=== PATIENT | male | born 1940 | race Caucasian/White ===

== ENCOUNTER 2016-08-22 12:40 | Observation (INO) ==
[2016-08-22 13:06] LABS: Basophils % 0.3 %; Hematocrit 41.7 % (37.5-50.1); Hemoglobin 12.7 g/dL (12.9-16.9); Immature Granulocytes % 4.2 % (0-4); Lymphocytes # 0.6 K/mcL (0.6-4.6); Mean Corpuscular HGB Conc 30.5 g/dL (31.6-35.5); Mean Corpuscular Hemoglobin 26.1 pg (28.0-33.3); Mean Corpuscular Volume 85.8 fL (83.0-100.0); Mean Platelet Volume 9.1 fL (9.4-12.4); Monocytes # 1.3 K/mcL (0.0-1.3); Monocytes % 16.4 %; Neutrophils # 5.6 K/mcL (1.6-8.9); Platelet Count 241 K/mcL (140-400); Red Blood Count 4.86 M/mcL (4.19-5.50); Red Cell Distribution Width 20.5 % (11.5-14.5); Segmented Neutrophils % 71.1 %
[2016-08-22 13:15] LABS: BUN/Creatinine Ratio 18 (6-26); Blood Urea Nitrogen 19 mg/dL (8-26); Calcium 9.9 mg/dL (8.6-10.8); Carbon Dioxide 26 mEq/L (19-29); Chloride 105 mEq/L (98-109); Glucose 109 mg/dL (70-99); Osmolality,Calculated 295 (280-300); Potassium 4.7 mEq/L (3.5-4.5); Sodium 141 mEq/L (136-145); eGFR For African Americans > 60 (> 60); eGFR For Non-African Americans > 60 (> 60)
--- NOTE | 2016-08-22 13:45 | Emergency Department Note ---
Disposition Clinical Impression: Pneumonia of both lower lobes Qualifiers: Pneumonia type: due to unspecified organism Qualified Code(s): J18.9 - Pneumonia, unspecified organism Disposition: Admitted As Inpatient Condition: Fair General Adult HPI - General Chief complaint: ED Shortness of Breath/Dyspnea Stated complaint: SOB Time Seen by Provider: 08/22/16 12:43 Source: patient, family Limitations: no limitations Nursing Notes Reviewed: Yes Vital Signs Reviewed: Yes - History of Present Illness HPI Narrative: 76 y/o male who presented 1 week ago due to cough and fatigue. Was diagnosed with pneumonia and d/c home with levaquin. He has had an improvement in his cough but worsening in his fatigue. Also reports decrease in his PO intake. PMH of CAD, COPD, Parkinsons. On Carbidopa, ASA, nitro, lasix, plavix, lisinipril, coreg, levothyroxine. Denies a current fever. Pain Scale: 0 Improves with: nothing Worsens with: other (exertion) Associated symptoms: Reports: denies other symptoms Treatments Prior to Arrival: none - Related Data Home Medications Medication Instructions Recorded Confirmed Acetaminophen [Tylenol] 500 mg PO Q6HR PRN 08/22/16 08/22/16 Albuterol Neb [AccuNeb] 1.25 mg IH Q4H PRN 08/22/16 08/22/16 Albuterol Sulfate [Albuterol 1 puff IH QID 08/22/16 08/22/16 Inhaler] Aspirin 81 mg PO DAILY 08/22/16 08/22/16 Atorvastatin [Lipitor] 40 mg PO HS 08/22/16 08/22/16 Budesonide/Formoterol 160/4.5 1 puff IH BIDR 08/22/16 08/22/16 [Symbicort 160/4.5] Carbidopa/Levodopa [Carbidopa-Levo 1 each PO TID 08/22/16 08/22/16 25-100 mg Odt] Carvedilol [Coreg] 6.25 mg PO BID 08/22/16 08/22/16 Clopidogrel [Plavix] 75 mg PO DAILY 08/22/16 08/22/16 Furosemide [Lasix] 40 mg PO DAILY 08/22/16 08/22/16 Levothyroxine Sodium 200 mcg PO DAILY 08/22/16 08/22/16 Lisinopril [Lisinopril] 2.5 mg PO DAILY 08/22/16 08/22/16 Potassium Chloride [Klor-Con 10] 10 meq PO BID 08/22/16 08/22/16 Primidone [Mysoline] 250 mg PO TID 08/22/16 08/22/16 Allergies Allergy/AdvReac Type Severity Reaction Status Date / Time No Known Allergies Allergy Verified 08/13/16 13:42 All systems ED: reviewed and negative except as stated. Constitutional: Denies: fever Eyes: Denies: vision change ENT ED: Denies: throat pain Cardiovascular: Denies: chest pain Respiratory: Reports: cough, dyspnea Gastrointestinal: Denies: abdominal pain Integumentary: Denies: rash Neurological: Denies: headache Endocrine: Denies: fatigue Past Medical History - Past Medical History Medical history: Reports: COPD, myocardial infarction Psychiatric history: Reports: no psych history - Social History Smoking Status: Former smoker Smokeless Tobacco Status: No Alcohol use: Reports: none, occasionally Drug use: Reports: none Physical Exam - General Limitations: no limitations General appearance: alert - Head Head exam: atraumatic - Eye Eye exam: Present: normal appearance, PERRL - ENT ENT exam: normal exam - Neck Neck exam: Present: normal inspection - Chest Chest inspection: Present: normal inspection - Respiratory Respiratory exam: Present: other (rales on the right). Absent: respiratory distress, wheezes - Cardiovascular Cardiovascular exam: Present: regular rate, normal rhythm - Abdominal Exam Abdominal exam: Present: soft, Non-Tender - Extremities Exam Extremities exam: Present: normal inspection - Back Exam Back exam: Present: normal inspection - Neurological Exam Neurological exam: Present: alert, oriented X3 - Psychiatric Psychiatric exam: Present: normal affect, normal mood Course Course Narrative: 76 y/o male w/ dx of pneumonia who is getting worse fatigue. RR is 22 but SPO2 is adequate. O2 is 90% on RA in the room. CXR demonstrates pneumonia on the right. - Reevaluation(s) Reevaluation #1: pneumonia has progressed since 1 week ago, it is now bilateral with worsening effusions. Will admit for failure of outpatient therapy and pneumonia. SPO2 was 90% on RA. Failed outpatient levaquin. Will start vanc/zosyn. Accepted by [facility] Vital Signs Temperature 97.8 F 08/22/16 12:57 Pulse Rate 92 08/22/16 12:57 Respiratory Rate 22 08/22/16 12:57 Blood Pressure 114/67 08/22/16 12:57 O2 Sat by Pulse Oximetry 96 08/22/16 12:57 Temperature 97.8 F 08/22/16 20:01 Pulse Rate 90 08/22/16 20:01 Respiratory Rate 18 08/22/16 20:01 Blood Pressure 126/74 08/22/16 20:01 O2 Sat by Pulse Oximetry 94 L 08/22/16 20:01 Oxygen Delivery Oxygen Delivery Nasal Cannula Medical Decision Making - Medical Records Medical records reviewed: Yes I reviewed the patient's medical records. - Lab Data Lab results reviewed: Yes I reviewed the patient's lab results. Result diagrams: 08/22/16 12:54 08/22/16 12:54 Lab Results 08/22/16 08/22/16 08/22/16 Range/Units 12:54 12:54 12:54 WBC 7.9 (4.3-11.1) K/mcL RBC 4.86 (4.19-5.50) M/mcL Hgb 12.7 L (12.9-16.9) g/dL Hct 41.7 (37.5-50.1) % MCV 85.8 (83.0-100.0) fL MCH 26.1 L (28.0-33.3) pg MCHC 30.5 L (31.6-35.5) g/dL RDW 20.5 H (11.5-14.5) % Plt Count 241 (140-400) K/mcL MPV 9.1 L (9.4-12.4) fL Immature Gran % 4.2 H (0-4) % Seg Neutrophils % 71.1 % Lymphocytes % 8.0 % Monocytes % 16.4 % Eosinophils % 0.0 % Basophils % 0.3 % Neutrophils # 5.6 (1.6-8.9) K/mcL Lymphocytes # 0.6 (0.6-4.6) K/mcL Monocytes # 1.3 (0.0-1.3) K/mcL Eosinophils # 0.0 (0.0-0.6) K/mcL Basophils # 0.0 (0.0-0.2) K/mcL Sodium 141 (136-145) mEq/L Potassium 4.7 H (3.5-4.5) mEq/L Chloride 105 (98-109) mEq/L Carbon Dioxide 26 (19-29) mEq/L BUN 19 (8-26) mg/dL Creatinine 1.07 (0.72-1.25) mg/dL Est GFR ( Amer) > 60 (> 60) Est GFR (Non-Af Amer) > 60 (> 60) BUN/Creatinine Ratio 18 (6-26) Glucose 109 H (70-99) mg/dL Calculated Osmolality 295 (280-300) Lactic Acid (0.5-2.2) mmol/L Calcium 9.9 (8.6-10.8) mg/dL Troponin I 0.01 (0-0.03) ng/mL B-Natriuretic Peptide (0-100) pg/mL TSH 0.511 (0.350-4.840) mcIU/mL 08/22/16 08/22/16 Range/Units 12:54 13:13 WBC (4.3-11.1) K/mcL RBC (4.19-5.50) M/mcL Hgb (12.9-16.9) g/dL Hct (37.5-50.1) % MCV (83.0-100.0) fL MCH (28.0-33.3) pg MCHC (31.6-35.5) g/dL RDW (11.5-14.5) % Plt Count (140-400) K/mcL MPV (9.4-12.4) fL Immature Gran % (0-4) % Seg Neutrophils % % Lymphocytes % % Monocytes % % Eosinophils % % Basophils % % Neutrophils # (1.6-8.9) K/mcL Lymphocytes # (0.6-4.6) K/mcL Monocytes # (0.0-1.3) K/mcL Eosinophils # (0.0-0.6) K/mcL Basophils # (0.0-0.2) K/mcL Sodium (136-145) mEq/L Potassium (3.5-4.5) mEq/L Chloride (98-109) mEq/L Carbon Dioxide (19-29) mEq/L BUN (8-26) mg/dL Creatinine (0.72-1.25) mg/dL Est GFR ( Amer) (> 60) Est GFR (Non-Af Amer) (> 60) BUN/Creatinine Ratio (6-26) Glucose (70-99) mg/dL Calculated Osmolality (280-300) Lactic Acid 2.0 (0.5-2.2) mmol/L Calcium (8.6-10.8) mg/dL Troponin I (0-0.03) ng/mL B-Natriuretic Peptide 130 H (0-100) pg/mL TSH (0.350-4.840) mcIU/mL - Radiology Data Radiology results reviewed: Yes I reviewed the patient's radiology results. - EKG Data EKG #1 EKG attestation: Yes I reviewed and interpreted this EKG. EKG shows normal: sinus rhythm Rate: normal Rhythm: NSR Interpretation: nonspecific ST-T wave changes Attestation Statement - Attestation Attestation: For this encounter, I have reviewed the resident, WEB FEEDER, or PA documentation, treatment plan, and medical decision making; and I have had face to face time with this patient. 76-year-old male presents with increased shortness of breath, nausea and generalized malaise and weakness. Patient states he was diagnosed with pneumonia within the past week. He refused to stay in the hospital and was discharged with a prescription for levofloxacin. Patient states he finished his medication yesterday but has started to worsen in condition. On repeat chest x-ray patient has a infiltrate consistent with pneumonia. Patient started on antibiotics in the emergency department and will be admitted for further care and evaluation. Vital signs otherwise stable.
[2016-08-22] MEDS ORDERED: Vancomycin 1,000 MG in D5% in Water 250 ML IVPB ONE (14:08)
[2016-08-22] MEDS ORDERED: Piperacillin/Tazobactam 3.375 GM in D5% in Water (Mini-Bag+) 100 ML IVPB ONE (14:08)
--- NOTE | 2016-08-22 15:45 | Electrocardiograph Report ---
[address] [place], [place] [address] Test Date: 2016-08-22 Pat Name: Nuria Marti Department: 105 Room: 2A26 Gender: M Fireman: : 1940 Requested By: Raudel Parada Order Number: [id number] Reading MD: Jaun Villasenor MD Measurements Intervals [place] Rate: 94 P: 55 AR: 148 QRS: 46 QRSD: 94 T: 124 QT: 340 QTc: 392 Interpretive Statements SINUS RHYTHM LEFT ATRIAL ENLARGEMENT LATERAL ISCHEMIA Electronically Signed On 08-22-2016 15:43:48 EST by Jaun Villasenor MD
[2016-08-22] MEDS ORDERED: Naloxone 0.4 MG/ML INJ IVP PRN (16:02)
[2016-08-22 16:15] LABS: Thyroid Stimulating Hormone 0.511 mcIU/mL (0.350-4.840)
[2016-08-22] MEDS ORDERED: Albuterol 2.5 MG/3 ML NEBULIZER IH PRN (16:16)
--- NOTE | 2016-08-22 16:28 | Internal Med History&Physical ---
<Priscilla Falcon - Last Filed: 08/22/16 22:45> Date of Encounter: 08/22/16 Time of Encounter: 16:19 Assessment and Plan (1) Pneumonia of both lower lobes Current visit: Yes Status: Acute Patient presenting with increased shortness of breath and weakness. He presented 1 week ago with productive cough and was diagnosed with pneumonia and sent home on PO Levaquin. CXR reveals bilateral lower lobe pneumonia with para pneumonic effusions. He has failed outpatient treatment. He is hypoxic with O2 saturations of 90% on room air. On exam, patient with right posterior rales. WBC normal at 7.9, patient is afebrile. Lactic acid elevated at 2.0. Recheck lactic acid. Broad spectrum antibiotics with vancomycin and Zosyn. Continuous IV fluids with 0.9NS at 75mL/hr titrate oxygen to maintain O2 sat > 92% Duoneb treatments QID Albuterol nebulizer Q2hr PRN Qualifiers: Pneumonia type: due to unspecified organism Qualified Code(s): J18.9 - Pneumonia, unspecified organism (2) Diarrhea Current visit: Yes Status: Acute Patient reports having watery diarrhea 2-3 times daily for the last 3 days. Check stool for C.Diff IV fluids 0.9NS at 75mL/hr Culturelle PO daily Qualifiers: Diarrhea type: unspecified type Qualified Code(s): R19.7 - Diarrhea, unspecified (3) Hyperkalemia Current visit: Yes Status: Acute Potassium of 4.7. Patient takes potassium supplement daily. Hold potassium supplement. Recheck chemistry tomorrow. (4) COPD (chronic obstructive pulmonary disease) Current visit: Yes Status: Acute Patient with diagnosis of COPD, here with pneumonia which failed outpatient treatment. He is satting 90% on room air. Continue home dose of Budesonide/Formotorol titrate Oxygen to maintain O2 saturation > 92% Duoneb treatments QID Albuterol nebulizer Q2hr PRN Qualifiers: COPD type: unspecified COPD Qualified Code(s): J44.9 - Chronic obstructive pulmonary disease, unspecified (5) Diastolic congestive heart failure Current visit: No Status: Chronic Patient with systolic congestive heart failure. Echo 12/04/15 showed LVEF of 50 % and mild Left ventricular diastolic dysfunction. He follows with Dr. Jaramillo in cardiology as an outpatient. Patient actually appears a little dry on exam. Continue home doses of carvedilol, lasix, lisinopril Qualifiers: Congestive heart failure chronicity: chronic Qualified Code(s): I50.32 - Chronic diastolic (congestive) heart failure (6) DVT prophylaxis Current visit: Yes Status: Acute Internal Medicine - H&P: HPI Chief complaint: shortness of breath, fatigue Admitted From: Emergency Dept Plans for Post Hospital Care: Home History of present illness: Mr. Marti is a 76 year old male with hypertension, coronary artery disease, ischemic cardiomyopathy, systolic congestive heart failure, parkinson's and COPD presented to the emergency department today with increased shortness of breath, and weakness. He presented a week ago with productive cough and was found to have pneumonia and sent home on oral Levaquin. He reports his cough has improved is no longer productive however he has had increasing shortness of breath, weakness, poor appetite. He also reports lightheadedness from time to time him on standing. He reports some watery diarrhea 2-3 times a day for the last 3 days. He denies any nausea, vomiting, abdominal pain. He denies any fever, chills, or sweats. He denies any chest pain, palpitations evaluation in the emergency department included a chest x-ray which showed bilateral lower lobe pneumonia with parapneumonic effusions. White blood cell count was normal at 7.9. Patient was found to be hypoxic satting 90% on room air. He was mildly hyperkalemic with potassium of 4.7. Troponin was normal at 0.01. BNP was mildly elevated at 1:30. Lactic acid was elevated at 2.0. On exam, patient is alert and oriented, in no acute distress. His heart has regular rate and rhythm. He had rales in right base on auscultation. Past Med Surg Social Fam HX - Past Medical History Medical history: CHF, COPD, coronary artery disease, hypertension, myocardial infarction, thyroid disease, other (parkinsons) Psychiatric history: no psych history - Past Surgical History Surgical History: coronary bypass (CABG) - Social History Smoking Status: Former smoker (60 Pack year history) Smokeless Tobacco Status: No Alcohol use: none Drug use: none - Family History Mother Living Status: Age at : 83 Hx Family Endocrine Disorder: Yes (diabetes) Father Living Status: Age at : 51 Cause of : MT Hx Family Cardiac Disorders: Yes Internal Medicine - H&P: Meds Acetaminophen [Tylenol] 500 mg PO Q6HR PRN 08/22/16 [History] Albuterol Neb [AccuNeb] 1.25 mg IH Q4H PRN 08/22/16 [History] Albuterol Sulfate [Albuterol Inhaler] 1 puff IH QID 08/22/16 [History] Aspirin 81 mg PO DAILY 08/22/16 [History] Atorvastatin [Lipitor] 40 mg PO HS 08/22/16 [History] Budesonide/Formoterol 160/4.5 [Symbicort 160/4.5] 1 puff IH BIDR 08/22/16 [ History] Carbidopa/Levodopa [Carbidopa-Levo 25-100 mg Odt] 1 each PO TID 08/22/16 [ History] Carvedilol [Coreg] 6.25 mg PO BID 08/22/16 [History] Clopidogrel [Plavix] 75 mg PO DAILY 08/22/16 [History] Furosemide [Lasix] 40 mg PO DAILY 08/22/16 [History] Levothyroxine Sodium 200 mcg PO DAILY 08/22/16 [History] Lisinopril [Lisinopril] 2.5 mg PO DAILY 08/22/16 [History] Potassium Chloride [Klor-Con 10] 10 meq PO BID 08/22/16 [History] Primidone [Mysoline] 250 mg PO TID 08/22/16 [History] Allergies No Known Allergies Allergy (Verified 08/13/16 13:42) All Systems PM: A 10-system review of systems was performed and is negative for pertinent findings except as documented above in the HPI. - Constitutional Constitutional: fatigue, weakness, no chills, no fever(s), no night sweats - EENT Eyes: no change in vision, no discharge, no pain, no photophobia Ears: no ear discharge, no ear pain, no tinnitus Nose, mouth and throat: no dysphagia, no nasal discharge, no neck pain, no sore throat - Cardiovascular Cardiovascular ROS IM: dyspnea, dyspnea on exertion, lightheadedness, no chest pain, no diaphoresis, no palpitations, no syncope - Respiratory Respiratory: cough, dyspnea, dyspnea on exertion, no wheezing, no excessive phlegm production - Gastrointestinal Gastrointestinal: diarrhea, no abdominal pain, no hematemesis, no hematochezia, no melena, no nausea, no vomiting - Musculoskeletal Musculoskeletal ROS IM: no numbness, no tingling - Integumentary Integumentary IM: no rash, no unusual bruising - Neurological Neurological ROS: no confusion, no convulsions, no focal weakness, no numbness, no tingling, no tremor(s) - Hematologic/Lymphatic Hematologic/Lymphatic: no easy bruising - Constitutional Vitals: Temp Pulse Resp BP Pulse Ox 97.7 F 93 22 94/61 96 08/22/16 15:51 08/22/16 15:51 08/22/16 15:51 08/22/16 15:51 08/22/16 15:51 General appearance: Present: A&O X 3, pleasant, no acute distress - Head Head exam: Present: atraumatic, normocephalic - Eye Eye exam: Present: PERRL, conjuntiva pink, sclera anicteric Pupils: Present: PERRL - Neck Neck exam general surgery: Present: supple, trachea midline. Absent: lymphadenopathy - Respiratory Respiratory exam: Present: rales (fine rales in right base). Absent: accessory muscle use, rhonchi, wheezes - Cardiovascular Cardiovascular exam: Present: RRR, +S1, +S2. Absent: diastolic murmur, gallop, rubs, systolic murmur - GI/Abdominal GI/Abdominal exam: Present: normal bowel sounds, soft, no peritoneal signs. Absent: distended, tenderness - Extremities Exam Extremities exam: Present: warm, radial pulses palpable and symetrical. Absent : calf tenderness, cyanotic, pedal edema - Neurological Exam Neurological exam: Present: CN II-XII intact, oriented X3, no focal deficits. Absent: facial droop, speech deficit - Skin Skin exam: Present: dry, intact Internal Med - H&P Results - Labs CBC & Chem 7: 08/22/16 12:54 08/22/16 12:54 Labs: All Lab Results (24 Hours) 08/22/16 08/22/16 08/22/16 Range/Units 12:54 12:54 12:54 WBC 7.9 (4.3-11.1) K/mcL RBC 4.86 (4.19-5.50) M/mcL Hgb 12.7 L (12.9-16.9) g/dL Hct 41.7 (37.5-50.1) % MCV 85.8 (83.0-100.0) fL MCH 26.1 L (28.0-33.3) pg MCHC 30.5 L (31.6-35.5) g/dL RDW 20.5 H (11.5-14.5) % Plt Count 241 (140-400) K/mcL MPV 9.1 L (9.4-12.4) fL Immature Gran % 4.2 H (0-4) % Seg Neutrophils % 71.1 % Lymphocytes % 8.0 % Monocytes % 16.4 % Eosinophils % 0.0 % Basophils % 0.3 % Neutrophils # 5.6 (1.6-8.9) K/mcL Lymphocytes # 0.6 (0.6-4.6) K/mcL Monocytes # 1.3 (0.0-1.3) K/mcL Eosinophils # 0.0 (0.0-0.6) K/mcL Basophils # 0.0 (0.0-0.2) K/mcL Sodium 141 (136-145) mEq/L Potassium 4.7 H (3.5-4.5) mEq/L Chloride 105 (98-109) mEq/L Carbon Dioxide 26 (19-29) mEq/L BUN 19 (8-26) mg/dL Creatinine 1.07 (0.72-1.25) mg/dL Est GFR ( Amer) > 60 (> 60) Est GFR (Non-Af Amer) > 60 (> 60) BUN/Creatinine Ratio 18 (6-26) Glucose 109 H (70-99) mg/dL Calculated Osmolality 295 (280-300) Lactic Acid (0.5-2.2) mmol/L Calcium 9.9 (8.6-10.8) mg/dL Troponin I 0.01 (0-0.03) ng/mL B-Natriuretic Peptide (0-100) pg/mL TSH 0.511 (0.350-4.840) mcIU/mL 08/22/16 08/22/16 Range/Units 12:54 13:13 WBC (4.3-11.1) K/mcL RBC (4.19-5.50) M/mcL Hgb (12.9-16.9) g/dL Hct (37.5-50.1) % MCV (83.0-100.0) fL MCH (28.0-33.3) pg MCHC (31.6-35.5) g/dL RDW (11.5-14.5) % Plt Count (140-400) K/mcL MPV (9.4-12.4) fL Immature Gran % (0-4) % Seg Neutrophils % % Lymphocytes % % Monocytes % % Eosinophils % % Basophils % % Neutrophils # (1.6-8.9) K/mcL Lymphocytes # (0.6-4.6) K/mcL Monocytes # (0.0-1.3) K/mcL Eosinophils # (0.0-0.6) K/mcL Basophils # (0.0-0.2) K/mcL Sodium (136-145) mEq/L Potassium (3.5-4.5) mEq/L Chloride (98-109) mEq/L Carbon Dioxide (19-29) mEq/L BUN (8-26) mg/dL Creatinine (0.72-1.25) mg/dL Est GFR ( Amer) (> 60) Est GFR (Non-Af Amer) (> 60) BUN/Creatinine Ratio (6-26) Glucose (70-99) mg/dL Calculated Osmolality (280-300) Lactic Acid 2.0 (0.5-2.2) mmol/L Calcium (8.6-10.8) mg/dL Troponin I (0-0.03) ng/mL B-Natriuretic Peptide 130 H (0-100) pg/mL TSH (0.350-4.840) mcIU/mL <Francisco Gillis - Last Filed: 08/23/16 15:27> Date of Encounter: 08/23/16 Internal Medicine - H&P: HPI History of present illness: Mr. Marti is a 76 year old male All Systems PM: A 10-system review of systems was performed and is negative for pertinent findings except as documented above in the HPI. - Constitutional Vitals: Temp Pulse Resp BP Pulse Ox 97.7 F 76 16 104/60 93 L 08/23/16 12:10 08/23/16 12:10 08/23/16 12:10 08/23/16 12:10 08/23/16 12:10 Internal Med - H&P Results - Labs CBC & Chem 7: 08/23/16 10:57 08/23/16 06:23 Labs: Short CBC 08/23/16 08/23/16 Range/Units 06:23 10:57 WBC 6.9 (4.3-11.1) K/mcL Hgb 9.7 L D 9.7 L (12.9-16.9) g/dL Hct 31.5 L 31.6 L (37.5-50.1) % Plt Count 182 (140-400) K/mcL Neutrophils # 4.8 (1.6-8.9) K/mcL BMP 08/23/16 06:23 Sodium 143 Potassium 4.1 Chloride 108 Carbon Dioxide 26 BUN 18 Creatinine 0.84 Glucose 71 Calcium 8.5 L - Attending Attestation I examined this patient and my medical decision-making was reviewed with the Advanced Practice Provider. I agree with the documented findings, disposition and treatment plan as described except to the extent set forth below. Patient presented to the hospital with generalized weakness and shortness of breath. He received 5 days treatment for pneumonia outpatient. He feels worse. His chest x-ray reveals bilateral pneumonia. Lung exam reveals rales at the right base, no wheezing. Plan: Will admit patient to medical service provided treatment with antibiotics and inhaled bronchodilators and oxygen by nasal cannula.
[2016-08-22] MEDS: Ipratropium/Albuterol Neb 3 ML IH SCH ×2 (16:41→23:02)
[2016-08-22] MEDS: 0.9 % Sodium Chloride 1,000 ML IVC SCH (16:59)
[2016-08-22] MEDS: Lactobacillus 1 EACH CAP.SPRINK PO SCH (16:59)
[2016-08-22] MEDS ORDERED: Vancomycin 1,000 MG in D5% in Water 250 ML IVPB SCH (17:00)
[2016-08-22] MEDS: Carbidopa/Levodopa 25/100 TABLET PO SCH (20:55)
[2016-08-22] MEDS: Budesonide/Formoterol 160/4.5 MDI IH SCH (22:30)
[2016-08-23] MEDS: Ipratropium/Albuterol Neb 3 ML IH SCH ×4 (04:07→22:08)
[2016-08-23 07:05] LABS: BUN/Creatinine Ratio 21 (6-26); Blood Urea Nitrogen 18 mg/dL (8-26); Calcium 8.5 mg/dL (8.6-10.8); Carbon Dioxide 26 mEq/L (19-29); Chloride 108 mEq/L (98-109); Glucose 71 mg/dL (70-99); Osmolality,Calculated 296 (280-300); Potassium 4.1 mEq/L (3.5-4.5); Sodium 143 mEq/L (136-145); eGFR For African Americans > 60 (> 60); eGFR For Non-African Americans > 60 (> 60)
[2016-08-23 07:12] LABS: Hematocrit 31.5 % (37.5-50.1); Mean Corpuscular HGB Conc 30.8 g/dL (31.6-35.5); Mean Corpuscular Hemoglobin 26.9 pg (28.0-33.3); Mean Corpuscular Volume 87.5 fL (83.0-100.0); Mean Platelet Volume 10.8 fL (9.4-12.4); Platelet Count 182 K/mcL (140-400); Red Cell Distribution Width 19.9 % (11.5-14.5)
[2016-08-23 07:32] LABS: Hemoglobin 9.7 g/dL (12.9-16.9)
[2016-08-23 08:07] LABS: Lymphocytes # 0.9 K/mcL (0.6-4.6); Monocytes # 0.9 K/mcL (0.0-1.3); Neutrophils # 4.8 K/mcL (1.6-8.9)
[2016-08-23 08:08] LABS: Anisocytosis 1+ (Not Present); Platelet Estimate Normal (Normal)
[2016-08-23 08:09] LABS: Basophilic Stippling 1+ (Not Present); Polychromasia 1+ (Not Present)
[2016-08-23 08:10] LABS: Nucleated Red Blood Cells 2 /100 WBC (0)
[2016-08-23] MEDS ORDERED: Aspirin 81 MG TAB.CHEW PO SCH (09:00)
[2016-08-23] MEDS: Furosemide 40 MG TABLET PO SCH (09:34)
[2016-08-23] MEDS: Lactobacillus 1 EACH CAP.SPRINK PO SCH (09:34)
[2016-08-23] MEDS: Carbidopa/Levodopa 25/100 TABLET PO SCH ×3 (09:34→21:11)
[2016-08-23] MEDS: *HR* Heparin 5,000 UNIT/ML VIAL SQ SCH ×3 (09:36→16:48)
--- NOTE | 2016-08-23 10:03 | Internal Med Progress Note ---
<Gonzalez Coles - Last Filed: 08/23/16 11:28> Date of Encounter: 08/23/16 Time of Encounter: 10:01 - Assessment and plan (1) Acute respiratory failure with hypoxia Current Visit: Yes Status: Acute Assessment and plan: 76 y/o patient hx of hTN, CAD, systolic congestive heart failure, COPD presents with worsening sob and weakness. 1 week ago patient was diagnosed with pneumonia and sent home on PO levaquin. Patient requires oxygen to keep O2 saturations above 90%. 2nd to pneumonia. CXR shows b/l lower lobe pneumonia and para pneumonic effusions. Lung exam shows diffuse decrease breath sounds, poor air movement. Patient has required increase in O2 supplementaiton from yesterday. Currently on 3.5L O2. Continue O2 supplementation, IV antibiotics, duoneb, albuterol nebulizers. (2) Pneumonia of both lower lobes Current Visit: Yes Status: Acute Assessment and plan: Patients CXR shows b/l lower lobe infiltrates and para pneumonic effusions. He was treated outpatient with levaquin but his sob continued to worsen. WBC 6.9. Community acquired. We will discontinue vanc, zosyn, and start on rocephin and azithromax, O2 supplementation. Awaiting culture results and sensitivity before de-escalating antibiotics Qualifiers: Pneumonia type: due to unspecified organism Qualified Code(s): J18.9 - Pneumonia, unspecified organism (3) COPD (chronic obstructive pulmonary disease) Current Visit: Yes Status: Acute Assessment and plan: 2nd to tobacco use. Former smoker. Reports improved SOB. Poor air movement on lung exam. Just started on home O2. continue symbicort, O2, duoneb, albuterol nebulizer PRN. Qualifiers: COPD type: unspecified COPD Qualified Code(s): J44.9 - Chronic obstructive pulmonary disease, unspecified (4) Diarrhea Current Visit: Yes Status: Acute Assessment and plan: Patient reported 2-3x loose stools before admission. Has not had any since admission. Was on levaquin for outpatient therapy for Pneumonia. C. diff ordered and pending. wbc 6.9. d/c fluids as patient has pulmonary crackles. continue culturelle Qualifiers: Diarrhea type: unspecified type Qualified Code(s): R19.7 - Diarrhea, unspecified (5) DVT prophylaxis Current Visit: Yes Status: Acute Assessment and plan: Heparin SQ. (6) Hyperkalemia Current Visit: Yes Status: Acute Assessment and plan: resolved. patient takes potassium supplements at home. may have been 2nd to this. potassium has been held. May also have been 2nd to dehydration as patient reported diarrhea. will continue to monitor with BMP tomorrow morning. (7) Diastolic congestive heart failure Current Visit: No Status: Chronic Assessment and plan: LVEF 50% with mild LV diastolic disfunction. Patient is on Lasix therapy outpatient. On physical exam has crackles. D/c fluids. Qualifiers: Congestive heart failure chronicity: chronic Qualified Code(s): I50.32 - Chronic diastolic (congestive) heart failure (8) Hypertension Current Visit: Yes Status: Chronic Assessment and plan: hx of HTN. BP is controlled. Continue lisinopril, lasix. Qualifiers: Hypertension type: essential hypertension Qualified Code(s): I10 - Essential (primary) hypertension (9) Coronary artery disease Current Visit: Yes Status: Chronic Assessment and plan: hx of MD in past. Denies CP currently. Troponin x1 normal. BNP 130 which is baseline for him. TSH WNL. Continue plavix, aspirin, coreg, lipitor Qualifiers: Coronary Disease-Associated Artery/Lesion type: [place] artery [place] vs. transplanted heart: [place] heart Associated angina: without angina Qualified Code(s): I25.10 - Atherosclerotic heart disease of [place] coronary artery without angina pectoris - Subjective Interval history: 76 M admitted for community acquired pneumonia. Patient says his sob has improved. He denies chest pain, palpitations, abdominal pain, pain with inspiration and cough. - Constitutional Vitals: Temp Pulse Resp BP Pulse Ox 97.8 F 90 18 100/63 90 L 08/23/16 07:37 08/23/16 07:37 08/23/16 07:37 08/23/16 07:37 08/23/16 07:37 General appearance: Present: A&O X 3, pleasant, no acute distress - Respiratory Respiratory exam: Present: decreased breath sounds. Absent: rales, rhonchi, wheezes - Cardiovascular Cardiovascular exam: Present: RRR, +S1, +S2. Absent: diastolic murmur, gallop, rubs, systolic murmur - GI/Abdominal GI/Abdominal exam: Present: normal bowel sounds, soft, no peritoneal signs. Absent: distended, tenderness - Extremities Exam Extremities exam: Present: warm, radial pulses palpable and symetrical. Absent : calf tenderness, cyanotic, pedal edema Internal Medicine: Result - Labs CBC & Chem 7: 08/23/16 10:57 08/23/16 06:23 Labs: Short CBC 08/23/16 Range/Units 06:23 WBC 6.9 (4.3-11.1) K/mcL Hgb 9.7 L D (12.9-16.9) g/dL Hct 31.5 L (37.5-50.1) % Plt Count 182 (140-400) K/mcL Neutrophils # 4.8 (1.6-8.9) K/mcL BMP 08/23/16 06:23 Sodium 143 Potassium 4.1 Chloride 108 Carbon Dioxide 26 BUN 18 Creatinine 0.84 Glucose 71 Calcium 8.5 L Consult Discharge Plan - Plan Referrals: Faith Dickens, [employer]OR [employer]ISING COLLECTOR [Primary Care Provider] - 08/30/16 10:45 am (Please follow up as schedule...) <Jude Ortega - Last Filed: 08/23/16 11:31> Date of Encounter: 08/23/16 - Constitutional Vitals: Temp Pulse Resp BP Pulse Ox 97.8 F 90 18 100/63 91 L 08/23/16 07:37 08/23/16 07:37 08/23/16 10:48 08/23/16 07:37 08/23/16 10:48 Internal Medicine: Result - Labs CBC & Chem 7: 08/23/16 10:57 08/23/16 06:23 Labs: Short CBC 08/23/16 08/23/16 Range/Units 06:23 10:57 WBC 6.9 (4.3-11.1) K/mcL Hgb 9.7 L D 9.7 L (12.9-16.9) g/dL Hct 31.5 L 31.6 L (37.5-50.1) % Plt Count 182 (140-400) K/mcL Neutrophils # 4.8 (1.6-8.9) K/mcL BMP 08/23/16 06:23 Sodium 143 Potassium 4.1 Chloride 108 Carbon Dioxide 26 BUN 18 Creatinine 0.84 Glucose 71 Calcium 8.5 L - Attending Attestation Acute on chronic respiratory failure secondary to community-acquired pneumonia failed outpatient therapy with Levaquin Continue ceftriaxone and azithromycin day 1 Hold IV fluids, continue IV Lasix Chest x-ray shows bilateral pleural effusions/unlikely parapneumonic effusions from pneumonia Consider a CT scan of the chest if worse only Consider repeating echocardiogram if worse as well I examined this patient and my medical decision-making was reviewed with the TAMALE MAKER/PA/Advanced Practice Nurse/Resident Physician. I agree with the documented findings, disposition and treatment plan as described except to the extent set forth below.
[2016-08-23] MEDS: 0.9 % Sodium Chloride 1,000 ML IVC SCH (10:08)
[2016-08-23] MEDS: Budesonide/Formoterol 160/4.5 MDI IH SCH (10:47)
[2016-08-23 11:09] LABS: Hematocrit 31.6 % (37.5-50.1); Hemoglobin 9.7 g/dL (12.9-16.9)
[2016-08-23] MEDS: predniSONE 20 MG TABLET PO SCH (12:22)
[2016-08-23] MEDS: Azithromycin 250 MG TABLET PO SCH (12:23)
[2016-08-23] MEDS ORDERED: Vancomycin 1,000 MG in D5% in Water 250 ML IVPB SCH (16:00)
[2016-08-23] MEDS ORDERED: Vancomycin 750 MG in D5% in Water 250 ML IVPB SCH (16:00)
[2016-08-23] MEDS ORDERED: Piperacillin/Tazobactam 3.375 GM in D5% in Water (Mini-Bag+) 100 ML IVPB SCH (22:00)
[2016-08-24] MEDS: *HR* Heparin 5,000 UNIT/ML VIAL SQ SCH ×2 (00:19→06:20)
[2016-08-24] MEDS: Ipratropium/Albuterol Neb 3 ML IH SCH ×2 (04:32→10:46)
[2016-08-24] MEDS: Carbidopa/Levodopa 25/100 TABLET PO SCH (07:52)
[2016-08-24] MEDS: predniSONE 20 MG TABLET PO SCH (07:52)
[2016-08-24] MEDS: Azithromycin 250 MG TABLET PO SCH (07:52)
[2016-08-24] MEDS: Lactobacillus 1 EACH CAP.SPRINK PO SCH (07:52)
[2016-08-24] MEDS: Furosemide 40 MG TABLET PO SCH (07:52)
[2016-08-24] MEDS ORDERED: Aspirin Enteric Coated 81 MG Tablet PO SCH (09:00)
--- NOTE | 2016-08-24 10:00 | Discharge Summary ---
<Gonzalez Coles - Last Filed: 08/24/16 10:24> Date of Encounter: 08/24/16 Time of Encounter: 09:57 - Discharge Diagnosis (1) Acute respiratory failure with hypoxia Priority: Primary Status: Acute (2) Pneumonia of both lower lobes Priority: Secondary Status: Acute Qualifiers: Pneumonia type: due to unspecified organism Qualified Code(s): J18.9 - Pneumonia, unspecified organism (3) COPD (chronic obstructive pulmonary disease) Priority: Secondary Status: Acute Qualifiers: COPD type: unspecified COPD Qualified Code(s): J44.9 - Chronic obstructive pulmonary disease, unspecified (4) Diarrhea Priority: Secondary Status: Acute Qualifiers: Diarrhea type: unspecified type Qualified Code(s): R19.7 - Diarrhea, unspecified (5) DVT prophylaxis Priority: Secondary Status: Acute (6) Hyperkalemia Priority: Secondary Status: Acute (7) Diastolic congestive heart failure Priority: Secondary Status: Chronic Qualifiers: Congestive heart failure chronicity: chronic Qualified Code(s): I50.32 - Chronic diastolic (congestive) heart failure (8) Hypertension Priority: Secondary Status: Chronic Qualifiers: Hypertension type: essential hypertension Qualified Code(s): I10 - Essential (primary) hypertension (9) Coronary artery disease Priority: Secondary Status: Chronic Qualifiers: Coronary Disease-Associated Artery/Lesion type: [place] artery [place] vs. transplanted heart: [place] heart Associated angina: without angina Qualified Code(s): I25.10 - Atherosclerotic heart disease of [place] coronary artery without angina pectoris - Discharge Medications Prescriptions: Amoxicillin/Clavulanate [Augmentin] 500 mg PO DAILY #6 tablet Azithromycin [Zithromax] 250 mg PO BID #2 tablet PredniSONE 10 mg PO TAPER 12 Days Home Medications: Acetaminophen [Tylenol] 500 mg PO Q6HR PRN 08/22/16 [History] Albuterol Neb [AccuNeb] 1.25 mg IH Q4H PRN 08/22/16 [History] Albuterol Sulfate [Albuterol Inhaler] 1 puff IH QID 08/22/16 [History] Aspirin 81 mg PO DAILY 08/22/16 [History] Atorvastatin [Lipitor] 40 mg PO HS 08/22/16 [History] Budesonide/Formoterol 160/4.5 [Symbicort 160/4.5] 1 puff IH BIDR 08/22/16 [ History] Carbidopa/Levodopa [Carbidopa-Levo 25-100 mg Odt] 1 each PO TID 08/22/16 [ History] Carvedilol [Coreg] 6.25 mg PO BID 08/22/16 [History] Clopidogrel [Plavix] 75 mg PO DAILY 08/22/16 [History] Furosemide [Lasix] 40 mg PO DAILY 08/22/16 [History] Levothyroxine Sodium 200 mcg PO DAILY 08/22/16 [History] Lisinopril 2.5 mg PO DAILY 08/22/16 [History] Potassium Chloride [Klor-Con 10] 10 meq PO BID 08/22/16 [History] Primidone [Mysoline] 250 mg PO TID 08/22/16 [History] Amoxicillin/Clavulanate [Augmentin] 500 mg PO DAILY #6 tablet 08/24/16 [Rx] Azithromycin [Zithromax] 250 mg PO BID #2 tablet 08/24/16 [Rx] PredniSONE 10 mg PO TAPER 12 Days 08/24/16 [Rx] Allergies/Adverse Reactions: Allergies No Known Allergies Allergy (Verified 08/13/16 13:42) Date of admission: 08/22/16 15:01 Primary care physician: Faith Dickens CNP Consults: 08/22/16 16:14 Consult to Nutrition [CONS] Routine Comment: Consulting Provider: NUTRITION Reason for Dietary Consult: MST Score Discharging clinician: Gonzalez Coles Anticipated date of discharge: 08/24/16 - Patient Status Disposition: Home Health Service Condition: Fair Functional capacity at discharge: independent ambulation Overall status at discharge: patient is progressing back to baseline - Discharge Instructions Follow Up With: Faith Dickens CNP [Primary Care Provider] - 08/30/16 10:45 am (Please follow up as schedule...) - Diet and Activity Activity: increase activity as tolerated, wear oxygen at all times (2L) Diet: advance to your usual diet Hospital course: Mr. Marti is a 76 year old male with history of hypertension, coronary artery disease, systolic congestive heart failure, COPD presented with worsening shortness of breath and weakness. One week ago patient was diagnosed with pneumonia in the emergency department and sent home on 7 days of Levaquin. Patient states he finished his 7 day course however continued to be short of breath and weak. During admission patient required oxygen to keep saturations above 90%. Chest x-ray showed bilateral lower lobe pneumonia and effusions. Initially he was started on vancomycin and Zosyn and home Lasix was continued. This was switched to azithromycin. Patient was also treated with supplemental oxygen, DuoNeb, albuterol nebulizers. His oxygen level was weaned down from 3.5 L to 2 L which he currently has at home. Furthermore patient also reported having 2-3 times loose stools before admission. He was checked for C. difficile which was negative. Also he did not have any loose stools after being admitted.Patient's labs show normal white count, he remains afebrile, and he has had improvement in his lung exam compared to yesterday with absent rales. Patient's vitals are stable, he is able to ambulate independently, and he has good oral intake. He should follow-up with his PCP within the next 7 days. He will be discharged with 6 day course of augmentin, one more dose of azithromax, and prednisone taper. He will also have referral to home health. If patients condition worsens he may need follow up CT chest and pulmonary referral. - Time Spent with Patient Total time spent providing and/or coordinating discharge services: - Constitutional Vitals: Temp Pulse Resp BP Pulse Ox 97.7 F 87 36 95/60 94 L 08/24/16 06:58 08/24/16 06:58 08/24/16 06:58 08/24/16 06:58 08/24/16 06:58 General appearance: Present: A&O X 3, pleasant, no acute distress - Head Head exam: Present: atraumatic, normocephalic - Eye Eye exam: Present: PERRL, conjuntiva pink, sclera anicteric - Neck Neck exam general surgery: Present: supple, trachea midline. Absent: lymphadenopathy - Respiratory Respiratory exam: Present: CTAB. Absent: accessory muscle use, rales, rhonchi, wheezes - Cardiovascular Cardiovascular exam: Present: RRR, +S1, +S2. Absent: diastolic murmur, gallop, rubs, systolic murmur - GI/Abdominal GI/Abdominal exam: Present: normal bowel sounds, soft, no peritoneal signs. Absent: distended, tenderness - Extremities Exam Extremities exam: Present: warm, radial pulses palpable and symetrical. Absent : calf tenderness, cyanotic, pedal edema - Neurological Exam Neurological exam: Present: CN II-XII intact, oriented X3, no focal deficits. Absent: pronater drift, facial droop, speech deficit - Skin Skin exam: Present: dry, intact <BetoNoraJude urban - Last Filed: 08/24/16 10:33> Date of Encounter: 08/24/16 Date of admission: 08/22/16 15:01 Primary care physician: Faith Dickens CNP Consults: 08/22/16 16:14 Consult to Nutrition [CONS] Routine Comment: Consulting Provider: NUTRITION Reason for Dietary Consult: MST Score Hospital course: Mr. Marti is a 76 year old male - Time Spent with Patient Total time spent providing and/or coordinating discharge services: - Constitutional Vitals: Temp Pulse Resp BP Pulse Ox 97.7 F 87 36 95/60 94 L 08/24/16 06:58 08/24/16 06:58 08/24/16 06:58 08/24/16 06:58 08/24/16 10:27 - Attending Attestation Acute on chronic respiratory failure secondary to acute COPD exacerbation due to community-acquired pneumonia failed outpatient therapy with Levaquin Chest x-ray shows bilateral pleural effusions/unlikely parapneumonic effusions from pneumonia Consider a CT scan of the chest if worse only Follow-up with pulmonary services within 3 weeks, may need pulmonary function test within the next 4-6 weeks. Complete 8 more days of Augmentin, one more day of azithromycin and taper prednisone I examined this patient and my medical decision-making was reviewed with the DOUBLE END TENONER OPERATOR/PA/Advanced Practice Nurse/Resident Physician. I agree with the documented findings, disposition and treatment plan as described except to the extent set forth below.
--- NOTE | 2016-08-24 10:31 | Physician Discharge Referral ---
Home Health/Hosp Referral Info Transfer to: Home Health Attending Provider: Dr. Pérez Provider in Charge Post Discharge: PCP - Diagnosis (1) Acute respiratory failure with hypoxia Priority: Primary Status: Acute (2) Pneumonia of both lower lobes Priority: Secondary Status: Acute (3) COPD (chronic obstructive pulmonary disease) Priority: Secondary Status: Acute (4) Diarrhea Priority: Secondary Status: Acute (5) DVT prophylaxis Priority: Secondary Status: Acute (6) Hyperkalemia Priority: Secondary Status: Acute (7) Diastolic congestive heart failure Priority: Secondary Status: Chronic (8) Hypertension Priority: Secondary Status: Chronic (9) Coronary artery disease Priority: Secondary Status: Chronic - Respiratory Orders Oxygen / L per min (2L) Smoking Cessation: Smoking cessation has been advised. For more information, call the [employer] Quit Line at 0-521-TKOY-NOW. - Diet/Nutrition Diet/Nutrition Orders: Cardiac - Activity Activity Orders: Walker - Services Needed Following services are medically necessary services: Nursing, Home Health Aide, Physical Therapy - Transfer Medications Prescriptions: Amoxicillin/Clavulanate [Augmentin] 500 mg PO DAILY #6 tablet Azithromycin [Zithromax] 250 mg PO BID #2 tablet PredniSONE 10 mg PO TAPER 12 Days Home Medications: Acetaminophen [Tylenol] 500 mg PO Q6HR PRN 08/22/16 [History] Albuterol Neb [AccuNeb] 1.25 mg IH Q4H PRN 08/22/16 [History] Albuterol Sulfate [Albuterol Inhaler] 1 puff IH QID 08/22/16 [History] Aspirin 81 mg PO DAILY 08/22/16 [History] Atorvastatin [Lipitor] 40 mg PO HS 08/22/16 [History] Budesonide/Formoterol 160/4.5 [Symbicort 160/4.5] 1 puff IH BIDR 08/22/16 [ History] Carbidopa/Levodopa [Carbidopa-Levo 25-100 mg Odt] 1 each PO TID 08/22/16 [ History] Carvedilol [Coreg] 6.25 mg PO BID 08/22/16 [History] Clopidogrel [Plavix] 75 mg PO DAILY 08/22/16 [History] Furosemide [Lasix] 40 mg PO DAILY 08/22/16 [History] Levothyroxine Sodium 200 mcg PO DAILY 08/22/16 [History] Lisinopril 2.5 mg PO DAILY 08/22/16 [History] Potassium Chloride [Klor-Con 10] 10 meq PO BID 08/22/16 [History] Primidone [Mysoline] 250 mg PO TID 08/22/16 [History] Amoxicillin/Clavulanate [Augmentin] 500 mg PO DAILY #6 tablet 08/24/16 [Rx] Azithromycin [Zithromax] 250 mg PO BID #2 tablet 08/24/16 [Rx] PredniSONE 10 mg PO TAPER 12 Days 08/24/16 [Rx] Allergies/Adverse Reactions: Allergies No Known Allergies Allergy (Verified 08/13/16 13:42) Certification: Further, I certify that my clinical findings support that this patient is homebound (i.e. absences from home require considerable and taxing effort and are for medical reasons or taoist services or infrequently or short duration when for other reasons) because: Homebound Reason: Patient requires assistance of a person or device to safely leave home, Leaving home requires considerable and taxing effort due to condition Attestation: My signature below is to certify that this patient is under my care and that I, or nurse practitioner, or a physician's senior care assistant working with me, has a face-to -face encounter with this patient.
[2016-08-24 11:26] VITALS: BP 82/55
[2016-08-24] MEDS ORDERED: Aminoglycoside Consult 1 EACH MC ONE (13:00)
== END 2016-08-24 13:01 | disposition home health service (06) ==
LOC: EMEROO 12:40 → 2ANU 12:40 → SUATTDRO 15:01 → 2ANU 15:41
PROVIDERS: ADMIT Nurse Practitioner Family; ATTEND Internal Medicine